=== PATIENT | male | born 1975 | race Caucasian/White ===

== ENCOUNTER 2022-09-14 06:54 | Day surgery (SDC) | payer OTHER ==
[2022-09-12 14:58] VITALS: BMI 35.6
[2022-09-14] MEDS ORDERED: LACTATED RINGERS 1,000 ML IV SCH (06:56)
[2022-09-14] MEDS ORDERED: LIDOCAINE 1% (10MG/ML) FOR IV START INTRADERMA PRN (06:56)
[2022-09-14] MEDS ORDERED: ONDANSETRON 4 MG/2 ML VIAL IVP PRN (07:00)
[2022-09-14] MEDS ORDERED: LACTATED RINGERS 1,000 ML IV ONE (07:25)
[2022-09-14 07:46] LABS: Glucose,Whole Blood 99 mg/dL (70-110)
[2022-09-14 07:53] VITALS: TEMP 97.3
[2022-09-14] MEDS ORDERED: fentaNYL (PF) 50 MCG/ML 2 ML AMP ONE (08:03)
[2022-09-14] MEDS ORDERED: LIDOCAINE 2% INJ 20 MG/ML (2 ML VIAL) ONE (08:03)
[2022-09-14] MEDS ORDERED: PROPOFOL 10 MG/ML 20 ML VIAL IV ONE (08:03)
[2022-09-14] MEDS ORDERED: MIDAZOLAM 2 MG/2 ML VIAL ONE (08:03)
--- NOTE | 2022-09-14 08:29 | P.PCN ---
Date of Procedure: 09/14/22 Procedure(s) Performed: Brief history: Patient is a pleasant 47-year-old white male male scheduled for an elective upper endoscopy as well as colonoscopy as a part of evaluation of GERD and screening for colon cancer. He is presently on omeprazole 20 mg twice daily for several years. Procedure performed: Esophagogastroduodenoscopy with biopsy Colonoscopy with snare polypectomy Preoperative diagnosis: Long-standing history of GERD Screening for colon cancer Anesthesia: MAC Procedure: After informed consent was obtained from the patient was brought into the endoscopy unit and IV sedation was administered by anesthesia under continuous monitoring. Initially upper endoscopy was done. The Olympus GF 160 video endoscope was inserted inserted into the mouth and esophagus intubated without any difficulty and was gradually advanced into the stomach and duodenum and carefully examined. The bulb and second part of the duodenum appeared normal. The scope was then withdrawn into the stomach adequately insufflated with air and upon careful examination the antrum had mild gastritis and biopsies were done from this area. Mucosa of the body, cardia and fundus appeared normal. multiple small gastric polyps were seen which were biopsied. The scope was then withdrawn into the esophagus. The GE junction was located at 40 cm to the incisors. It appeared regular with no erythema erosions or ulcerations. Rest of the esophagus appeared normal. Patient tolerated the procedure well. At this time the patient continued to remain sedation. Initial digital rectal examination was normal. Olympus CF 160 video colonoscope was then inserted into the rectum and gradually advanced to the cecum without any difficulty. Careful examination was performed as the scope was gradually being withdrawn. The prep was excellent. The cecum, ascending colon, transverse colon, descending colon, appeared normal. In the sigmoid there were 2 polyps measuring 5 mm and 1 cm in size both of which were removed by snare polypectomy. sigmoid colon and rectum appeared normal. Retroflexion was performed in the rectum and no lesions were noted. Patient tolerated the procedure well. Impression: 1. Upper endoscopy revealed mild antral gastritis and multiple small gastric polyps. 2. Colonoscopy revealed 5 mm and 1 cm; sigmoid polyp status post polypectomy. Recommendations: Findings of this examination were discussed with the patient as well as his family. He was advised to follow with the biopsy results. Biopsies adenoma he can have a repeat colonoscopy in 3 years.
[2022-09-14 08:35] VITALS: RESP 16
[2022-09-14 08:48] VITALS: BP 120/76; PULSE 85
== END 2022-09-14 09:25 | disposition home or self-care (01) ==
LOC: ORWHC2ENDO 06:54
PROVIDERS: ATTEND Internal Medicine Gastroenterology
DX: Z12.11 Encounter for screening for malignant neoplasm of colon (principal); K63.5 Polyp of colon; K29.50 Unspecified chronic gastritis without bleeding; K21.9 Gastro-esophageal reflux disease without esophagitis; K31.7 Polyp of stomach and duodenum; Z79.899 Other long term (current) drug therapy; I10 Essential (primary) hypertension; E78.5 Hyperlipidemia, unspecified; F17.200 Nicotine dependence, unspecified, uncomplicated; E11.9 Type 2 diabetes mellitus without complications
CPT/HCPCS: 88305; 45385; 43239; J2250; J2405; J3010; J2704; J2001